=== PATIENT | female | born 1990 | race Caucasian/White ===

== ENCOUNTER 2023-03-31 07:47 | Outpatient (CLI) | payer OTHER, SELFPAY | END 2023-03-31 07:48 | disposition home or self-care (01) | LOC: FRMREF 07:48 | PROVIDERS: PCP Physician Assistant Medical; Visit Provider Physician Assistant Medical | DX: N39.0 Urinary tract infection, site not specified (principal) | CPT/HCPCS: 87086; 87186 ==

== ENCOUNTER 2023-05-12 09:28 | Outpatient (CLI) | payer OTHER, SELFPAY | END 2023-05-12 09:29 | disposition home or self-care (01) | LOC: NFLDREF 05-20 08:54 | PROVIDERS: PCP Physician Assistant Medical; Referring Provider Physician Assistant Medical; Visit Provider Physician Assistant Medical | DX: R30.0 Dysuria (principal); R31.9 Hematuria, unspecified; R10.9 Unspecified abdominal pain; N30.01 Acute cystitis with hematuria; R31.0 Gross hematuria | CPT/HCPCS: 87086 ==

== ENCOUNTER 2023-05-23 08:07 | Outpatient (CLI) | payer OTHER, SELFPAY ==
--- NOTE | 2023-05-23 08:00 | CRLHL7_ITS ---
For Patients: As a result of the Century Cures Act, medical imaging exams and procedure reports are released immediately into your electronic medical record. You may view this report before your referring provider. If you have questions, please contact your health care provider. Indication: HEMATURIA, RUQ PAIN, LOWER BACK PAIN Technique: Routine noncontrast CT abdomen and pelvis Please note that all CT scans at this facility use dose modulation, iterative reconstruction, and/or weight-based dosing when appropriate to reduce radiation dose to as low as reasonably achievable. Comparison: None Findings: Lung bases are clear. There is no free intraperitoneal air. Incidental bone island within the right medial pubic bone. No fracture. Decreased attenuation of the liver. Gallbladder normal. Focal fatty sparing adjacent to the gallbladder within the liver. No calcified gallstones or biliary obstruction. The pancreas is normal. Splenic calcifications. Incidental splenule. Adrenal glands normal. Normal kidneys. The ureters are within normal limits. Normal bladder. Uterus and ovaries are unremarkable. No bowel obstruction or free fluid. No abscess. Mildly prominent subcentimeter mesenteric lymph nodes within the right lower quadrant. Normal appendix. No inflammatory bowel disease. Impression: Diffuse hepatic steatosis. Normal appendix. No renal, ureteral or bladder stone. A few mildly prominent right lower quadrant mesenteric lymph nodes are present measuring just under 1 cm may signify mild mesenteric adenitis. Please note that all CT scans at this facility use dose modulation, iterative reconstruction, and/or weight-based dosing when appropriate to reduce radiation dose to as low as reasonably achievable. Dictated by Gibson Tillman MD @ 05/23/2023 10:58:11 AM (Electronically Signed)
== END 2023-05-23 08:08 | disposition home or self-care (01) ==
LOC: CT 08:07
PROVIDERS: PCP Physician Assistant Medical; Visit Provider Physician Assistant Medical
DX: R31.9 Hematuria, unspecified (principal); K76.0 Fatty (change of) liver, not elsewhere classified; R10.9 Unspecified abdominal pain
CPT/HCPCS: 74176

== ENCOUNTER 2024-05-24 08:10 | Outpatient (CLI) | payer OTHER, SELFPAY | END 2024-05-24 08:11 | disposition home or self-care (01) | PROVIDERS: PCP Physician Assistant Medical; Visit Provider Physician Assistant Medical | DX: Z13.228 Encounter for screening for other metabolic disorders (principal); Z13.220 Encounter for screening for lipoid disorders; Z13.29 Encounter for screening for other suspected endocrine disorder | CPT/HCPCS: 80053; 80061; 84443 ==